=== PATIENT | male | born 1965 | race Caucasian/White ===

== ENCOUNTER 2016-12-06 19:38 | Emergency (ER) | payer OTHER ==
[~2016-12-06] VITALS: Ht 182.9 cm; Wt 93.0 kg
[~2016-12-06 19:38] MED LIST: ALEVE SINUS PO; AMBIEN PO; AMBIEN10 MG PO; ANTI-FUNGAL141 GM TP; ATHLETIC FOOT C30 GM TP; BRINTELLIX10 MG PO; BUSPAR10 MG PO; CIPROFLOXACIN750 MG PO; CYMBALTA60 MG; CYMBALTA60 MG PO; DEBROX15 ML BOTH EARS; DESYREL100 MG PO; DULOXETINE HCL60 MG PO; ESCITALOPRAM OX10 MG PO; GEODON20 MG PO; HALOPERIDOL2 MG PO; HYDROXYZINE PA100 MG PO; LATUDA20 MG PO; LATUDA80 MG PO; LITHIUM CARBON300 M1 PO; LITHIUM CARBON300 M2 PO; LITHIUM CARBON300 MG PO; NAPROSYN500 MG PO; NAPROXEN500 MG PO; NICOTINE PATCH1 EAC2 TD; QUETIAPINE FUM200 MG PO; RISPERDAL1 MG PO; Remove Nicotine Patch TD; SAPHRIS10 MG SL; SAPHRIS5 MG SL; STRATTERA80 MG PO; VYVANSE50 MG PO; ZOLPIDEM TARTRA10 MG PO
[2016-12-06 19:47] VITALS: BP 158/100
== END 2016-12-06 20:37 | disposition left against medical advice (07) ==
LOC: EME 19:38 → RME 19:38
DX: R20.0 Anesthesia of skin (principal); Z53.21 Procedure and treatment not carried out due to patient leaving prior to being seen by health care provider

== ENCOUNTER 2017-01-30 18:01 | Emergency (ER) | payer OTHER ==
[~2017-01-30] VITALS: Ht 175.3 cm; Wt 82.2 kg
[2017-01-30 19:02] LABS: EOSINOPHIL (%) 0.8 % (0-5); EOSINOPHIL COUNT 0.1 K/uL (0-0.3); HEMATOCRIT 43.7 % (38.0-50.0); IMMATURE GRANULOCYTE (%) 0.5 % (0.0-0.7); IMMATURE GRANULOCYTE COUNT 0.1 K/uL; LYMPHOCYTE COUNT 1.5 K/uL (1.0-2.8); MCH 29.8 PG (29.0-34.0); MCHC 33.9 G/DL (30.0-36.0); MCV 87.9 FL (86-99); MEAN PLAT.VOLUME 10.1 uM^3 (9.0-12.4); MONOCYTE (%) 4.9 % (3-12); MONOCYTE COUNT 0.7 K/uL (0-0.8); NEUTROPHIL (%) 83.4 % (45-76); PLATELET COUNT 169 K/uL (156-360); RBC DIS.WIDTH-CV 12.8 % (11.8-14.6); RBC DIS.WIDTH-SD 41.5 % (39-53); RED BLOOD COUNT 4.97 M/uL (4.00-5.50); WHITE BLOOD COUNT 14.4 K/uL (4.1-10.2)
[2017-01-30 19:13] LABS: CHLORIDE 106 mEq/L (99-109); POTASSIUM 3.8 mEq/L (3.7-5.4); SODIUM 140 mEq/L (136-147)
[2017-01-30 19:14] LABS: GLUCOSE 95 mg/dL (70-99)
[2017-01-30 19:16] LABS: ANION GAP 8 MEQ/L (2-14)
[2017-01-30 19:18] LABS: GFR ESTIMATE (CALCULATED) > 59 mL/min/; SERUM ETHYL ALCOHOL < 10 mg/dL
[2017-01-30 19:19] LABS: UREA NITROGEN (BUN) 12 mg/dL (9-23)
[2017-01-30 21:03] VITALS: BP 148/98
== END 2017-01-30 21:04 | disposition home or self-care (01) ==
LOC: EME 18:01
PROVIDERS: Emergency Medicine
DX: R07.81 Pleurodynia (principal); R51 Headache; W01.0XXA Fall on same level from slipping, tripping and stumbling without subsequent striking against object, initial encounter; F17.200 Nicotine dependence, unspecified, uncomplicated
CPT/HCPCS: 71020; 80048; 85025; 99281; 99284; G0480

== ENCOUNTER 2017-02-13 14:36 | Emergency (ER) | payer OTHER ==
[~2017-02-13] VITALS: Ht 175.3 cm; Wt 92.3 kg
[2017-02-13 15:16] LABS: EOSINOPHIL (%) 1.5 % (0-5); EOSINOPHIL COUNT 0.2 K/uL (0-0.3); HEMATOCRIT 41.2 % (38.0-50.0); IMMATURE GRANULOCYTE (%) 0.5 % (0.0-0.7); IMMATURE GRANULOCYTE COUNT 0.1 K/uL; INSTRUMENT ABS NEUTROPHIL CT 8.5 K/uL; MCH 29.9 PG (29.0-34.0); MCHC 34.5 G/DL (30.0-36.0); MCV 86.7 FL (86-99); MEAN PLAT.VOLUME 9.7 uM^3 (9.0-12.4); MONOCYTE (%) 5.8 % (3-12); MONOCYTE COUNT 0.6 K/uL (0-0.8); NEUTROPHIL (%) 82.6 % (45-76); NEUTROPHIL COUNT 8.5 K/uL (1.8-6.4); PLATELET COUNT 203 K/uL (156-360); RBC DIS.WIDTH-CV 12.6 % (11.8-14.6); RBC DIS.WIDTH-SD 39.9 % (39-53); RED BLOOD COUNT 4.75 M/uL (4.00-5.50); WHITE BLOOD COUNT 10.2 K/uL (4.1-10.2)
[2017-02-13 15:24] LABS: CHLORIDE 108 mEq/L (99-109); POTASSIUM 3.6 mEq/L (3.7-5.4); SODIUM 138 mEq/L (136-147)
[2017-02-13 15:26] LABS: GLUCOSE 113 mg/dL (70-99)
[2017-02-13 15:28] LABS: ANION GAP 6 MEQ/L (2-14)
[2017-02-13 15:29] LABS: SERUM ETHYL ALCOHOL < 10 mg/dL
[2017-02-13 15:30] LABS: GFR ESTIMATE (CALCULATED) > 59 mL/min/
[2017-02-13 15:31] LABS: UREA NITROGEN (BUN) 15 mg/dL (9-23)
[2017-02-13] MEDS ORDERED: DESYREL100 MG PO (15:33)
[2017-02-13] MEDS ORDERED: VYVANSE50 MG PO (15:33)
[2017-02-13] MEDS ORDERED: ADDERALL20 MG PO (15:33)
[2017-02-13] MEDS ORDERED: AMBIEN10 MG PO (15:34)
[2017-02-13 16:28] LABS: ADD MIUA? YES; BILIRUBIN NEGATIVE; BLOOD NEGATIVE; COLOR YELLOW ((YELLOW)); GLUCOSE (STRIP) NEGATIVE; KETONES NEGATIVE; LEUKOCYTES NEGATIVE; NITRITE NEGATIVE; PROTEIN (STRIP) 30; SPECIFIC GRAVITY 1.023 (1.000-1.030)
[2017-02-13 16:41] LABS: BACTERIA NONE SEEN /HPF; CALCIUM OXALATE CRYSTALS 3+ /HPF; EPITHELIAL CELLS NONE SEEN /HPF; MUCUS TRACE /LPF; RED BLOOD CELLS 0-5 /HPF (0-5); WHITE BLOOD CELLS 0-5 /HPF (0-5)
[2017-02-13 16:49] LABS: ADD MEDTOX COMMENT Y; AMPHETAMINE PRESUMPTIVE POSITIVE (500 ng/mL); BARBITURATES NEGATIVE (200 ng/mL); BENZODIAZEPINES NEGATIVE (150 ng/mL); COCAINE NEGATIVE (150 ng/mL); INTERNAL CONTROLS VALID? YES; METHADONE NEGATIVE (200 ng/mL); METHAMPHETAMINE NEGATIVE (500 ng/mL); OPIATES (MORPHINE) NEGATIVE (100 ng/mL); OXYCODONE NEGATIVE (100 ng/mL); PHENCYCLIDINE NEGATIVE (25 ng/mL); PROPOXYPHENE NEGATIVE (300 ng/mL); THC CANNABINOIDS NEGATIVE (50 ng/mL); TRICYCLIC ANTIDEPRESSANTS NEGATIVE (300 ng/mL)
[2017-02-13 17:32] VITALS: BP 155/99
== END 2017-02-13 17:37 | disposition home or self-care (01) ==
LOC: EME 14:36
PROVIDERS: Emergency Medicine
DX: F60.2 Antisocial personality disorder (principal); F90.9 Attention-deficit hyperactivity disorder, unspecified type; Z91.5 Personal history of self-harm; F17.200 Nicotine dependence, unspecified, uncomplicated
CPT/HCPCS: 80048; 81003; 84999; 85025; 90837; 99281; 99285; G0480

== ENCOUNTER 2017-02-26 21:45 | Inpatient (IN) | payer OTHER ==
[2017-02-26] VITALS: BP 61/48
[~2017-02-26 21:45] MED LIST changes: +ADDERALL20 MG PO
[2017-02-26 21:55] LABS: BASOPHIL COUNT 0.1 K/uL (0-0.1); EOSINOPHIL COUNT 0.3 K/uL (0-0.3); HEMATOCRIT 40.2 % (38.0-50.0); IMMATURE GRANULOCYTE (%) 2.2 % (0.0-0.7); IMMATURE GRANULOCYTE COUNT 0.6 K/uL; INSTRUMENT ABS NEUTROPHIL CT 20.7 K/uL; LYMPHOCYTE COUNT 3.4 K/uL (1.0-2.8); MCH 30.3 PG (29.0-34.0); MCHC 34.1 G/DL (30.0-36.0); MCV 88.9 FL (86-99); MEAN PLAT.VOLUME 10.9 uM^3 (9.0-12.4); MONOCYTE (%) 3.8 % (3-12); NEUTROPHIL (%) 79.8 % (45-76); NEUTROPHIL COUNT 20.7 K/uL (1.8-6.4); PLATELET COUNT 219 K/uL (156-360); RBC DIS.WIDTH-CV 12.8 % (11.8-14.6); RBC DIS.WIDTH-SD 41.5 % (39-53); RED BLOOD COUNT 4.52 M/uL (4.00-5.50); WHITE BLOOD COUNT 25.9 K/uL (4.1-10.2)
[2017-02-26 22:01] LABS: BASE EXCESS 3.1 mEq/L (-3 to +3); BICARBONATE 28.5 mEq/L (22-26); CARBOXY HGB 4.1 % (0-5); METHEMOGLOBIN 1.2 % (0-1.5); PCO2 46 mm Hg (35-45); PO2 286 mm Hg (80-100)
[2017-02-26 22:02] LABS: COMMENTS - BLOOD GASES C+A+; DEVICE VENT; FI02 80 %; MODE AC
[2017-02-26 22:03] LABS: ADD MIUA? YES; BILIRUBIN NEGATIVE; BLOOD LARGE; COLOR YELLOW ((YELLOW)); GLUCOSE (STRIP) NEGATIVE; KETONES 5; LEUKOCYTES NEGATIVE; NITRITE NEGATIVE; PROTEIN (STRIP) 100; SPECIFIC GRAVITY 1.024 (1.000-1.030)
[2017-02-26 22:03] LABS: MECHANICAL RATE 16 resp/min; PEEP 5 CM/H20; SITE RR; TIDAL VOLUME 500 ML; TOTAL RESP RATE 16 resp/min
[2017-02-26 22:07] LABS: BACTERIA RARE /HPF; EPITHELIAL CELLS RARE /HPF; HYALINE CASTS 40-50 /LPF; MUCUS TRACE /LPF; RED BLOOD CELLS TNTC /HPF (0-5); UCUL ADDED? YES
[2017-02-26 22:08] LABS: AMYLASE 49 IU/L (1-118); CHLORIDE 103 mEq/L (99-109); POTASSIUM 3.3 mEq/L (3.7-5.4); SODIUM 137 mEq/L (136-147)
[2017-02-26 22:10] LABS: ADD MEDTOX COMMENT Y; AMPHETAMINE PRESUMPTIVE POSITIVE (500 ng/mL); BARBITURATES NEGATIVE (200 ng/mL); BENZODIAZEPINES NEGATIVE (150 ng/mL); COCAINE NEGATIVE (150 ng/mL); INTERNAL CONTROLS VALID? YES; METHADONE NEGATIVE (200 ng/mL); METHAMPHETAMINE NEGATIVE (500 ng/mL); OPIATES (MORPHINE) NEGATIVE (100 ng/mL); OXYCODONE NEGATIVE (100 ng/mL); PHENCYCLIDINE NEGATIVE (25 ng/mL); PROPOXYPHENE NEGATIVE (300 ng/mL); THC CANNABINOIDS NEGATIVE (50 ng/mL); TRICYCLIC ANTIDEPRESSANTS NEGATIVE (300 ng/mL)
[2017-02-26 22:10] LABS: GLUCOSE 136 mg/dL (70-99)
[2017-02-26 22:11] LABS: ANION GAP 14 MEQ/L (2-14)
[2017-02-26 22:13] LABS: SERUM ETHYL ALCOHOL < 10 mg/dL
[2017-02-26 22:14] LABS: GFR ESTIMATE (CALCULATED) > 59 mL/min/
[2017-02-26 22:15] LABS: UREA NITROGEN (BUN) 17 mg/dL (9-23)
[2017-02-26 22:17] LABS: LIPASE 20 U/L (1.0-51.0)
[2017-02-27] VITALS (16 sets, daily range): BP systolic 90–132; BP diastolic 62–97
[2017-02-27 03:37] LABS: BASE EXCESS -11.3 mEq/L (-3 to +3); CARBOXY HGB 2.2 % (0-5); METHEMOGLOBIN 1.8 % (0-1.5); PCO2 45 mm Hg (35-45)
[2017-02-27 03:38] LABS: BICARBONATE 16.8 mEq/L (22-26); DEVICE 980; FI02 50 %; MODE AC; PO2 132 mm Hg (80-100); SITE LR
[2017-02-27 03:39] LABS: MECHANICAL RATE 16 resp/min; PEEP 5 CM/H20; TIDAL VOLUME 500 ML; TOTAL RESP RATE 21 resp/min; pH 7.18 (7.35-7.45)
[2017-02-27 06:15] LABS: BASE EXCESS -10.4 mEq/L (-3 to +3); BICARBONATE 16.3 mEq/L (22-26); COMMENTS - BLOOD GASES C+; DEVICE VENT; FI02 80 %; MECHANICAL RATE 20 resp/min; METHEMOGLOBIN 1.6 % (0-1.5); MODE A/C; PCO2 38 mm Hg (35-45); PEEP 5 CM/H20; PO2 145 mm Hg (80-100); SITE LR; TIDAL VOLUME 550 ML; TOTAL RESP RATE 24 resp/min; pH 7.24 (7.35-7.45)
[2017-02-27 06:48] LABS: METH RESISTANT S AUREUS PCR NEGATIVE (NEGATIVE)
[2017-02-27 06:49] LABS: PROBE CHECK PASS; SPECIMEN PROCESSING CONTROL PASS
[2017-02-27 08:57] LABS: BASE EXCESS -11.9 mEq/L (-3 to +3); BICARBONATE 14.7 mEq/L (22-26); CARBOXY HGB 1.4 % (0-5); METHEMOGLOBIN 1.7 % (0-1.5); PCO2 35 mm Hg (35-45); PO2 453 mm Hg (80-100); pH 7.23 (7.35-7.45)
[2017-02-27 08:58] LABS: COMMENTS - BLOOD GASES C+; DEVICE VENT; FI02 100 %; MECHANICAL RATE 20 resp/min; MODE AC; PEEP 13 CM/H20; SITE RF ALINE; TIDAL VOLUME 600 ML; TOTAL RESP RATE 20 resp/min
[2017-02-27 09:25] LABS: BASE EXCESS -14.7 mEq/L (-3 to +3); CARBOXY HGB 1.3 % (0-5); METHEMOGLOBIN 1.8 % (0-1.5)
[2017-02-27 09:26] LABS: COMMENTS - BLOOD GASES C+; DEVICE VENT; FI02 100 %; MECHANICAL RATE 10 resp/min; MODE AC; PCO2 59 mm Hg (35-45); PEEP 13 CM/H20; PO2 410 mm Hg (80-100); SITE RF ALINE; TIDAL VOLUME 500 ML; TOTAL RESP RATE 10 resp/min; pH 7.04 (7.35-7.45)
[2017-02-27 09:49] LABS: BASE EXCESS -17.1 mEq/L (-3 to +3); BICARBONATE 15.8 mEq/L (22-26); CARBOXY HGB 1.3 % (0-5); METHEMOGLOBIN 1.2 % (0-1.5); PCO2 79 mm Hg (35-45); PO2 413 mm Hg (80-100); pH 6.91 (7.35-7.45)
[2017-02-27 09:50] LABS: COMMENTS - BLOOD GASES C+; DEVICE VENT; FI02 100 %; MECHANICAL RATE 2 resp/min; MODE SIMV; PEEP 13 CM/H20; PRES. SUPPORT 10 CM/H2O; SITE RF ALINE; TIDAL VOLUME 500 ML; TOTAL RESP RATE 2.9 resp/min
[2017-02-27 10:07] LABS: BASE EXCESS -9.1 mEq/L (-3 to +3); CARBOXY HGB 1.4 % (0-5); METHEMOGLOBIN 1.6 % (0-1.5)
[2017-02-27 10:10] LABS: BICARBONATE 22.6 mEq/L (22-26); PCO2 96 mm Hg (35-45); PO2 296 mm Hg (80-100); pH 6.98 (7.35-7.45)
[2017-02-27 10:11] LABS: COMMENTS - BLOOD GASES C+; DEVICE VENT; FI02 100 %; MECHANICAL RATE 10 resp/min; MODE AC; PEEP 15 CM/H20; SITE RF ALINE; TIDAL VOLUME 500 ML; TOTAL RESP RATE 10 resp/min
[2017-02-27 10:18] LABS: BICARBONATE 21.8 mEq/L (22-26); CARBOXY HGB 1.3 % (0-5); METHEMOGLOBIN 1.3 % (0-1.5)
[2017-02-27 10:19] LABS: COMMENTS - BLOOD GASES C+; DEVICE VENT; FI02 100 %; MECHANICAL RATE 2 resp/min; MODE SIMV; PCO2 109 mm Hg (35-45); PO2 436 mm Hg (80-100); SITE RF ALINE; TOTAL RESP RATE 2 resp/min; pH 6.91 (7.35-7.45)
[2017-02-27 10:20] LABS: PEEP 13 CM/H20; TIDAL VOLUME 500 ML
[2017-02-27 10:55] LABS: EOSINOPHIL (%) 0 % (0-5); HEMATOCRIT 25.3 % (38.0-50.0); IMMATURE GRANULOCYTE (%) 0.9 % (0.0-0.7); IMMATURE GRANULOCYTE COUNT 0.2 K/uL; INSTRUMENT ABS NEUTROPHIL CT 20.5 K/uL; LYMPHOCYTE COUNT 0.8 K/uL (1.0-2.8); MCH 29.3 PG (29.0-34.0); MCHC 32.4 G/DL (30.0-36.0); MCV 90.4 FL (86-99); MEAN PLAT.VOLUME 11.2 uM^3 (9.0-12.4); MONOCYTE (%) 5.1 % (3-12); MONOCYTE COUNT 1.2 K/uL (0-0.8); NEUTROPHIL (%) 90.2 % (45-76); NEUTROPHIL COUNT 20.5 K/uL (1.8-6.4); NRBC (%) 0.4 /100 WBC (0-0); PLAT.SUFFICIENCY DECREASED; RBC DIS.WIDTH-CV 15.1 % (11.8-14.6); RBC DIS.WIDTH-SD 50.3 % (39-53); WHITE BLOOD COUNT 22.7 K/uL (4.1-10.2)
[2017-02-27 11:09] LABS: ALKALINE PHOSPHATASE 42 IU/L (3-129); ANION GAP 14 MEQ/L (2-14); CHLORIDE 113 MEQ/L (99-109); GFR ESTIMATE (CALCULATED) 28 mL/min/; GLUCOSE 171 mg/dL (70-99); POTASSIUM 4.4 MEQ/L (3.7-5.4); SAMPLE HEMOLYSIS CHECK 0; SAMPLE ICTERIC CHECK 0; SAMPLE LIPEMIA CHECK 0; SODIUM 150 MEQ/L (136-147); TOTAL BILIRUBIN 0.5 MG/DL (0.0-1.0); UREA NITROGEN (BUN) 27 mg/dL (9-23)
[2017-02-27 11:10] LABS: BASE EXCESS -9.1 mEq/L (-3 to +3); CARBOXY HGB 1.3 % (0-5); METHEMOGLOBIN 1.6 % (0-1.5)
[2017-02-27 11:11] LABS: COMMENTS - BLOOD GASES C+; DEVICE VENT; FI02 100 %; MECHANICAL RATE 14 resp/min; MODE SIMV; PCO2 74 mm Hg (35-45); PEEP 13 CM/H20; PO2 465 mm Hg (80-100); PRES. SUPPORT 0 CM/H2O; SITE RF ALINE; TIDAL VOLUME 500 ML; TOTAL RESP RATE 14 resp/min; pH 7.06 (7.35-7.45)
[2017-02-27 11:11] LABS: PROTHROMBIN TIME 22.9 SEC (10.2-12.9)
[2017-02-27 11:13] LABS: PTT 37.9 SEC (25-37)
[2017-02-27 11:24] LABS: PLATELET COUNT 108 K/uL (156-360)
[2017-02-27 11:40] LABS: FIBRINOGEN 95 mg/dL (150-450)
== END 2017-02-27 17:32 | DRG 955 ==
LOC: TRA 21:45 → SDC 23:06 → TRA 23:06 → 4WEST 02-27 00:07 → ENRESERV 02-27 00:10 → 4WEST 02-27 00:15
PROVIDERS: Emergency Medicine; Internal Medicine Critical Care Medicine; Specialist
PROC: 5A1935Z Respiratory Ventilation, Less than 24 Consecutive Hours (ICD-10-PCS; principal; 2017-02-26)
PROC: 0W9930Z Drainage of Right Pleural Cavity with Drainage Device, Percutaneous Approach (ICD-10-PCS; principal; 2017-02-26)
PROC: 0BH17EZ Insertion of Endotracheal Airway into Trachea, Via Natural or Artificial Opening (ICD-10-PCS; principal; 2017-02-26)
PROC: 5A12012 Performance of Cardiac Output, Single, Manual (ICD-10-PCS; 2017-02-26)
PROC: 5A2204Z Restoration of Cardiac Rhythm, Single (ICD-10-PCS; 2017-02-26)
PROC: 00C40ZZ Extirpation of Matter from Intracranial Subdural Space, Open Approach (ICD-10-PCS; 2017-02-26)
PROC: 30233N1 Transfusion of Nonautologous Red Blood Cells into Peripheral Vein, Percutaneous Approach (ICD-10-PCS; 2017-02-26)
PROC: 0W9930Z Drainage of Right Pleural Cavity with Drainage Device, Percutaneous Approach (ICD-10-PCS; 2017-02-27)
PROC: 5A12012 Performance of Cardiac Output, Single, Manual (ICD-10-PCS; 2017-02-27)
PROC: 04HY32Z Insertion of Monitoring Device into Lower Artery, Percutaneous Approach (ICD-10-PCS; 2017-02-27)
PROC: 02HV33Z Insertion of Infusion Device into Superior Vena Cava, Percutaneous Approach (ICD-10-PCS; 2017-02-27)
PROC: 5A2204Z Restoration of Cardiac Rhythm, Single (ICD-10-PCS; 2017-02-27)
DX: S02.0XXA Fracture of vault of skull, initial encounter for closed fracture; S02.119A Unspecified fracture of occiput, initial encounter for closed fracture; T79.7XXA Traumatic subcutaneous emphysema, initial encounter; S22.41XA Multiple fractures of ribs, right side, initial encounter for closed fracture; S27.0XXA Traumatic pneumothorax, initial encounter; J96.00 Acute respiratory failure, unspecified whether with hypoxia or hypercapnia; D65 Disseminated intravascular coagulation [defibrination syndrome]; J90 Pleural effusion, not elsewhere classified; S27.892A Contusion of other specified intrathoracic organs, initial encounter; S32.019A Unspecified fracture of first lumbar vertebra, initial encounter for closed fracture; S36.029A Unspecified contusion of spleen, initial encounter; S82.201B Unspecified fracture of shaft of right tibia, initial encounter for open fracture type I or II; S82.401B Unspecified fracture of shaft of right fibula, initial encounter for open fracture type I or II; V03.10XA Pedestrian on foot injured in collision with car, pick-up truck or van in traffic accident, initial encounter; Y92.410 Unspecified street and highway as the place of occurrence of the external cause; I46.9 Cardiac arrest, cause unspecified; I47.2 Ventricular tachycardia; I49.01 Ventricular fibrillation; Z66 Do not resuscitate; J98.11 Atelectasis; R40.20 Unspecified coma; E87.2 Acidosis; I10 Essential (primary) hypertension; F20.9 Schizophrenia, unspecified; F60.2 Antisocial personality disorder; F32.9 Major depressive disorder, single episode, unspecified; Z59.0 Homelessness
CPT/HCPCS: 36600; 70450; 70486; 71010; 71260; 72125; 72129; 72132; 73070; 73560; 73590; 74177; 80048; 80053; 81003; 82150; 82803; 83690; 84999; 85025; 85384; 85610; 85730; 86850; 86900; 86901; 86920; 87070; 87086; 87205; 87641; 93005; 94002; 94003; 99281; 99285; C1751; G0480; J0171; J0282; J0461; J0690; J1100; J1580; J3010; J7030; J7050; J7070; P9016